=== PATIENT | male | born 1950 | race African-American/Black ===

== ENCOUNTER → 2019-01-18 | Outpatient (CLI) | payer BC ==
[~2019-01-18] MED LIST: REGADENOSON 0.4 MG/5 ML DISP.SYRIN. IV ONE
--- NOTE | 2019-01-18 10:56 | PCVCIMAG ---
APPROVED REPORT Study performed: 01/18/2019 08:56:14 EXAM: Comprehensive 2D, Doppler, and color-flow Echocardiogram Patient Location: Echo lab Status: routine BSA: 1.94 HR: 74 bpmBP: 110/84 mmHg Rhythm: LBBB Other Information Study Quality: Good Indications Chest Pain Hypertension/HDD LBBB 2D Dimensions IVSd: 10.80 (7-11mm)LVOT Diam: 20.99 (18-24mm) LVDd: 42.62 mm PWd: 9.97 (7-11mm)Ascending Ao: 33.76 (22-36mm) LVDs: 35.39 (25-40mm) Left Atrium: 35.48 (27-40mm) Aortic Root: 25.62 mm LV Single Plane 4CH: 54.85 % LV Single Plane 2CH: 61.26 % Biplane EF: 58.5 % Volumes Left Atrial Volume (Systole) Single Plane 4CH: 43.14 mLSingle Plane 2CH: 17.69 mL LA ESV Index: 15.00 mL/m2 Aortic Valve AoV Peak Fili.: 0.98 m/s AO Peak Gr.: 3.86 mmHg Mitral Valve E/A Ratio: 0.9 MV Decel. Time: 254.38 ms MV E Max Fili.: 0.53 m/s MV A Fili.: 0.61 m/s TDI E/Lateral E': 8.83E/Medial E': 7.57 Medial E' Fili.: 0.07 m/s Lateral E' Fili.: 0.06 m/s Pulmonary Vein P Vein S: 0.41 m/sP Vein A: 0.39 m/s P Vein D: 0.27 m/sP Vein A Dur.: 96.9 msec P Vein S/D Ratio: 1.52 Left Ventricle The left ventricle is normal size. There is normal LV segmental wall motion. There is normal left ventricular wall thickness. Left ventricular systolic function is normal. The left ventricular ejection fraction is within the normal range. LVEF is 55-60%. Right Ventricle The right ventricle is normal size. The right ventricular systolic function is normal. Atria The left atrium size is normal. The right atrium size is normal. Aortic Valve The aortic valve is normal in structure. Trace aortic regurgitation. There is no aortic valvular stenosis. Mitral Valve The mitral valve is normal in structure. There is no mitral valve regurgitation noted. No evidence of mitral valve stenosis. Tricuspid Valve The tricuspid valve is normal in structure. There is no tricuspid valve regurgitation noted. Pulmonic Valve The pulmonary valve is normal in structure. There is no pulmonic valvular regurgitation. Great Vessels The aortic root is normal in size. IVC is normal in size and collapses >50% with inspiration. Pericardium There is no pericardial effusion. <Conclusion> The left ventricle is normal size. LVEF is 55-60%. The aortic valve is normal in structure. Trace aortic regurgitation. The mitral valve is normal in structure. There is no mitral valve regurgitation noted. The tricuspid valve is normal in structure. The pulmonary valve is normal in structure. There is no pericardial effusion.
--- NOTE | 2019-01-18 13:14 | PCVCIMAG ---
APPROVED REPORT Imaging Protocol: Rest Tc-99m/Stress Tc-99m 1 day Study performed: 01/18/2019 10:01:32 Indication: Chest pain, Abnormal EKG,Indigestion, LBBB Patient Location: Out-Patient Stress Nurse: Parris Fajardo RN, Keerthi Lawler RN DE Tech:YEIMI Dowd Ht: 5 ft 11 in Wt: 165 lbs BSA: 1.94 m2 HR: 72 bpm BP: 110/84 mmHg BMI: 23.0 Medical History Medical History: Age, Hyperlipidemia, HTN, LBBB Medications: Albuterol, Bystolic (last dose 12 hours) Pravastatin Allergies: PCN Exercise History: Physically active Resting Data Rest SPECT myocardial perfusion imaging was performed in supine position 45 minutes following the intravenous injection of 10.7 mCi of Tc-99m Sestamibi. Time of rest injection: 0930 Date: 01/18/2019 Administration Route: IV Administration Site: Right Arm Pharmacologic Stress Pharmacologic stress test was performed by injecting Regadenoson 0.4 mg IV push over 10-15 seconds immediately followed by the intravenous injection of 32.8 mCi of Tc-99m Sestamibi. Time of stress injection: 1050 Date: 01/18/2019 The images were gated to evaluate regional wall motion and calculate left ventricular ejection fraction. Stress only was performed in the Supine position. Stress Test Details Stress Test: Pharmacologic stress was paired with low level exercise. Reason for pharmacologic stress test: LBBB. HRMax Heart Rate (APMHR): 154 bpm Resting HR: 72 bpmTarget HR (85% APMHR): 130 bpm Max HR Achieved: 123 bpm % of APMHR: 79 Recovery HR: 85 bpm BP Resting BP: 110/84 mmHg Max BP: 129/71 mmHg Recovery BP: 122/75 mmHg ECG Resting ECG: Sinus Rhythm, LBBB Stress ECG: Sinus Tachycardia, LBBB ST Change: Downsloping ST depression, Nondiagnostic LBBB Maximum ST Deviation: 3 mm Arrhythmia: APC's Recovery ECG: Sinus Rhythm, LBBB Clinical Reason for Termination: Completed protocol Stress Symptoms: Dyspnea, Lightheaded Exercise duration: 4 min sec Symptoms resolved during recovery. Stress ECG Conclusion 1. Adequate response to intravenous Lexiscan 2. Inadequate heart rate for ECG diagnosis Study Data Post stress, the left ventricular ejection was 50%.. SSS: 9 SRS: 8 SDS: 3 TID = 1.10. Perfusion There is a large area of severely reduced uptake in the entire segment of the inferoseptal wall which is seen on the stress images as well as the resting images. This area thickens and moves normally and is most consistent with attenuation artifact. Wall Motion Normal left ventricular wall motion. Nuclear Conclusion ECG Findings: non-diagnostic Clinical Findings: negative for ischemia Nuclear Findings: negative for ischemia although septal fixed defect not atypical artifact location Exercise Capacity: not assessed Left Ventricular Function: normal 1. Low risk study although a fixed septal defect is not typical location for artifactual findings no inducible ischemia is noted 2. Post exercise left ventricular ejection fraction of 50% without wall motion abnormalities Interpreted by: Mariano Sims MD Electronically Approved: 01/18/2019 13:14:11 <Conclusion> 1. Adequate response to intravenous Lexiscan 2. Inadequate heart rate for ECG diagnosis
== END | disposition home or self-care (01) ==
LOC: PCVCIMAG 09:04
PROVIDERS: ATTEND Internal Medicine
DX: I44.7 Left bundle-branch block, unspecified (principal); Z88.0 Allergy status to penicillin
CPT/HCPCS: 78452; 93017; 93306; A9500; J2785